=== PATIENT | male | born 1975 | race African-American/Black ===

== ENCOUNTER 2023-05-17 05:26 | Inpatient (IN) | payer OTHER ==
[~2023-05-17] VITALS: Ht 167.6 cm; Wt 78.0 kg
[2023-05-17 06:11] LABS: BASOPHILS % (AUTO) 0.4 % (0.0-2.0); EOSINOPHILS % (AUTO) 0.2 % (0.0-6.0); HEMATOCRIT 42 % (39-51); HEMOGLOBIN 13.7 g/dL (13.5-17.5); LYMPHOCYTES # (AUTO) 0.8 K/uL (0.8-4.8); LYMPHOCYTES % (AUTO) 8.9 % (20.0-44.0); MEAN CORPUSCULAR HEMOGLOBIN 27 PG (26.0-33.0); MEAN CORPUSCULAR HGB CONC 33 g/dl (31.0-36.0); MEAN CORPUSCULAR VOLUME 81 fL (80-96); MONOCYTES # (AUTO) 0.6 K/uL (0.1-1.30); MONOCYTES % (AUTO) 6.8 % (2.0-12.0); NEUTROPHILS # (AUTO) 7.4 K/uL (1.8-8.9); NEUTROPHILS % (AUTO) 83.7 % (43.0-81.0); PLATELET COUNT (AUTO) 181 K/uL (150-450); RED BLOOD CELL COUNT(AUTO) 5.13 MIL/uL (4.5-6.0); RED CELL DISTRIBUTION WIDTH 14.4 % (11.5-15.0); WHITE BLOOD COUNT (AUTO) 8.8 K/uL (4.3-11.0)
[2023-05-17 06:19] LABS: CARBON DIOXIDE 27 mmol/L (21-32); CHLORIDE 105 mmol/L (98-107); CREATININE 1.4 mg/dL (0.6-1.3); GLUCOSE 127 mg/dL (74-106); POTASSIUM 3.3 mmol/L (3.5-5.1); SODIUM SERUM 142 mmol/L (136-145); UREA NITROGEN, BLOOD 18 mg/dL (7-18)
[2023-05-17] MEDS ORDERED: ASPIRIN 81 MG TAB.CHEW ONE (06:47)
[2023-05-17] MEDS ORDERED: ASPIRIN 81 MG TAB.CHEW PO ONE (07:00)
[2023-05-17] MEDS ORDERED: LORA-259 PO (08:16)
[2023-05-17] MEDS ORDERED: ESCI5TAB PO (08:16)
[2023-05-17] MEDS ORDERED: LOSA1TAB36 PO (08:16)
[2023-05-17] MEDS ORDERED: LORAZEPAM 1 MG TABLET PO PRN (09:00)
[2023-05-17 09:23] LABS: CHOLESTEROL 204 mg/dL (<200); HDL CHOLESTEROL 39 mg/dL (40-60); LDL 144 mg/dL (0-99); TRIGLYCERIDES 93 mg/dL (30-150)
[2023-05-17] MEDS ORDERED: POTASSIUM CHLORIDE 20 MEQ TAB.PRT.SR PO ONE (10:00)
[2023-05-17] MEDS ORDERED: Z GUARD REMEDY 4 OZ OINT TP PRN (10:30)
[2023-05-17] MEDS ORDERED: MAG HYDROX/AL HYDROX/SIMETH 30 ML UDC PO PRN (10:30)
[2023-05-17] MEDS ORDERED: MAGNESIUM HYDROXIDE 30 ML UDC PO PRN (10:30)
[2023-05-17] MEDS ORDERED: ONDANSETRON HCL/PF 4 MG/2 ML VIAL IVP PRN (10:30)
[2023-05-17] MEDS ORDERED: ZOLPIDEM TARTRATE 5 MG TABLET PO PRN (10:30)
[2023-05-17] MEDS ORDERED: ACETAMINOPHEN 325 MG TABLET PO PRN (10:30)
[2023-05-17 12:00] VITALS: BP 144/100; TEMP 98.8; O2SAT 99
[2023-05-17] MEDS: ESCITALOPRAM OXALATE (10 MG) 10 MG TABLET PO SCH (12:41)
[2023-05-17] MEDS: ATORVASTATIN 10 MG TABLET PO SCH (12:42)
[2023-05-17] MEDS: METOPROLOL TARTRATE 50 MG TABLET PO SCH ×2 (12:42→17:41)
[2023-05-17] MEDS: IV NS 0.9% 1,000 ML IV PRN (12:49)
[2023-05-17 17:32] VITALS: BP 147/92; TEMP 98.6; O2SAT 99
[2023-05-17 19:00] VITALS: BP 157/108; TEMP 98.2; O2SAT 99
[2023-05-18] VITALS: BP 148/90; TEMP 98; O2SAT 98
[2023-05-18] MEDS: METOPROLOL TARTRATE 50 MG TABLET PO SCH ×3 (00:24→13:06)
[2023-05-18] MEDS: IV NS 0.9% 1,000 ML IV PRN (00:51)
[2023-05-18 04:00] VITALS: BP 112/70; TEMP 97.7; O2SAT 99
[2023-05-18 07:12] LABS: BASOPHILS % (AUTO) 0.6 % (0.0-2.0); EOSINOPHILS # (AUTO) 0.4 K/uL (0.0-0.7); EOSINOPHILS % (AUTO) 5.8 % (0.0-6.0); HEMATOCRIT 40 % (39-51); HEMOGLOBIN 13.2 g/dL (13.5-17.5); LYMPHOCYTES # (AUTO) 2.4 K/uL (0.8-4.8); LYMPHOCYTES % (AUTO) 38.1 % (20.0-44.0); MEAN CORPUSCULAR HEMOGLOBIN 27 PG (26.0-33.0); MEAN CORPUSCULAR HGB CONC 33 g/dl (31.0-36.0); MEAN CORPUSCULAR VOLUME 81 fL (80-96); MONOCYTES # (AUTO) 0.7 K/uL (0.1-1.30); MONOCYTES % (AUTO) 10.5 % (2.0-12.0); NEUTROPHILS # (AUTO) 2.9 K/uL (1.8-8.9); PLATELET COUNT (AUTO) 182 K/uL (150-450); RED BLOOD CELL COUNT(AUTO) 4.95 MIL/uL (4.5-6.0); RED CELL DISTRIBUTION WIDTH 14.1 % (11.5-15.0); WHITE BLOOD COUNT (AUTO) 6.4 K/uL (4.3-11.0)
[2023-05-18 07:41] LABS: ALBUMIN 3.4 g/dL (3.4-5.0); BILIRUBIN,TOTAL 0.6 mg/dL (0.2-1.0); CALCIUM, SERUM 9.5 mg/dL (8.5-10.1); CREATININE 1.2 mg/dL (0.6-1.3); MAGNESIUM 2.2 mg/dL (1.8-2.4); PHOSPHORUS 4.3 mg/dL (2.5-4.9); POTASSIUM 3.7 mmol/L (3.5-5.1); TOTAL PROTEIN, SERUM 7.6 g/dL (6.4-8.2)
[2023-05-18 08:00] VITALS: BP 138/99; TEMP 97.6; O2SAT 97
[2023-05-18] MEDS ORDERED: LOSARTAN/HCTZ 50-12.5MG/ 1 EA TABLET PO SCH (09:00)
[2023-05-18] MEDS ORDERED: ASPIRIN 81 MG TAB.CHEW PO SCH (09:00)
[2023-05-18] MEDS: ESCITALOPRAM OXALATE (10 MG) 10 MG TABLET PO SCH (09:45)
[2023-05-18] MEDS: ATORVASTATIN 10 MG TABLET PO SCH (09:45)
[2023-05-18] MEDS ORDERED: IV NS 0.9% 250 ML IV ONE (10:18)
[2023-05-18] MEDS ORDERED: CT SWABBABLE VALVE TRANS SET 1 EA INFUS.SET MC ONE (10:18)
[2023-05-18] MEDS ORDERED: IOHEXOL-350 100 ML VIAL IV ONE (10:18)
[2023-05-18] MEDS ORDERED: METOPROLOL TARTRATE INJ 5 MG/5 ML AMPUL ONE ×2 (10:54→10:59)
[2023-05-18] MEDS ORDERED: NITROGLYCERIN 0.4 MG/TAB BOTTLE ONE (10:55)
[2023-05-18] MEDS: METOPROLOL TARTRATE INJ 5 MG/5 ML AMPUL IVP PRN ×2 (10:56→11:01)
[2023-05-18] MEDS ORDERED: NITROGLYCERIN 0.4 MG/TAB BOTTLE SL ONE (11:00)
[2023-05-18 12:00] VITALS: BP 141/91; TEMP 98.4
[2023-05-18 12:24] LABS: APPEARANCE,URINE SLIGHTLY CLOUDY (CLEAR); BILIRUBIN,URINE NEGATIVE (NEGATIVE); BLOOD, URINE TRACE-INTA Ery/uL (NEGATIVE); COLOR,URINE YELLOW (YELLOW); KETONES,URINE NEGATIVE (NEGATIVE); LEUKOCYTE ESTERASE ,URINE NEGATIVE (NEGATIVE); NITRITE, URINE NEGATIVE (NEGATIVE); PROTEIN,URINE NEGATIVE (NEGATIVE); UGLUCOSE NEGATIVE (NEGATIVE)
[2023-05-18 12:38] LABS: CREATININE, URINE 73.4 MG/DL (30.0-125.0)
[2023-05-18 12:44] LABS: AMPHETAMINE, URINE NEGATIVE (NEGATIVE); BARBITURATE, URINE NEGATIVE (NEGATIVE); BENZODIAZEPINE, URINE NEGATIVE (NEGATIVE); CANNABINOID, URINE NEGATIVE (NEGATIVE); COCCAINE, URINE NEGATIVE (NEGATIVE); OPIATE, URINE NEGATIVE (NEGATIVE); PHENCYCLIDINE SCREEN,URINE NEGATIVE (NEGATIVE)
[2023-05-18 13:06] VITALS: BP 146/96
[2023-05-18 13:46] LABS: ADD URINE CULTURE NO; BACTERIA,URINE Rare /HPF (None Seen); RBC,URINE 0-2 /HPF (0-2); SQUAMOUS EPITHELIAL CELL,UR Rare /HPF (None Seen); WBC,URINE 0-2 /HPF (0-3)
[2023-05-18] MEDS ORDERED: METO50TA16 PO (15:10)
[2023-05-18] MEDS ORDERED: ATOR10TA PO (15:10)
[2023-05-18] MEDS ORDERED: ASPI-1169 PO (15:10)
[2023-05-18 15:50] LABS: EOSINOPHIL,URINE Rare
== END 2023-05-18 16:10 | disposition home or self-care (01) | DRG 280 ==
LOC: ER 05:28 → MED 06:00 → TELE 07:59 → UNDOADMIN 07:59 → UNDODISIN 05-18 17:00
PROVIDERS: ADMIT Nurse Practitioner Acute Care; ATTEND Nurse Practitioner Acute Care
DX: I25.10 Atherosclerotic heart disease of native coronary artery without angina pectoris (principal); I21.A1 Myocardial infarction type 2; I50.33 Acute on chronic diastolic (congestive) heart failure; N17.0 Acute kidney failure with tubular necrosis; E78.5 Hyperlipidemia, unspecified; F41.9 Anxiety disorder, unspecified; E86.9 Volume depletion, unspecified; R91.8 Other nonspecific abnormal finding of lung field; I11.0 Hypertensive heart disease with heart failure
CPT/HCPCS: 36415; 71045-TC; 75574; 80048-TC; 80053-TC; 80061-TC; 81001; 82570-TC; 83735-TC; 84100-TC; 84300-TC; 84484-TC; 85025-TC; 93307-TC; A4223; G0378; J3490; J7030; J7050; Q9967